=== PATIENT | female | born 1940 | race Caucasian/White ===

== ENCOUNTER 2023-02-06 11:02 | Emergency (ER) | payer MEDICARE, SELFPAY ==
[2023-02-06] VITALS (9 sets, daily range): BP systolic 100–187; BP diastolic 49–103; PULSE 79–102; RESP 18–22; TEMP 36.7–38.9; O2SAT 91–96; BMI 31.4
--- NOTE | 2023-02-06 11:44 | XRR_ITS ---
PROCEDURE INFORMATION: Exam: XR Chest Exam date and time: 02/06/2023 11:47 AM Age: 82 years old Clinical indication: Cough and dyspnea; Patient HX: Weakness and nausea; Additional info: Dyspnea/cough TECHNIQUE: Imaging protocol: Radiologic exam of the chest. Views: 1 view. COMPARISON: No relevant prior studies available. FINDINGS: Lungs: Unremarkable. No consolidation. Pleural spaces: Unremarkable. No pleural effusion. No pneumothorax. Heart/Mediastinum: Unremarkable. No cardiomegaly. Bones/joints: No acute findings. Other findings: A skin fold is seen projecting over the right hemithorax simulating a pneumothorax but lung markings are seen on either side of this suspected skin fold. XR/XR chest 1V portable [id number] IMPRESSION: 1. No acute findings. 2. A skin fold is seen projecting over the right hemithorax simulating a pneumothorax but lung markings are seen on either side of this suspected skin fold.
--- NOTE | 2023-02-06 11:59 | ECG_ITS ---
[facility] Test Date: 2023-02-06 Pat Name: Fanny Samayoa Department: Room: Gender: Female Head Of Art: : 1940 Requested By: Curtis Cooper Order Number: [id number] Samantha MD: Jose Miner M.D. Measurements Intervals [place] Rate: 81 P: 36 [place]: 175 QRS: 1 QRSD: 120 T: 30 QT: 374 QTc: 434 Interpretive Statements SINUS RHYTHM WITH OCCASIONAL SUPRAVENTRICULAR PREMATURE COMPLEXES POSSIBLE ANTERIOR MYOCARDIAL INFARCTION , OF INDETERMINATE AGE [30 ms Q WAVE IN V3/V4, OR R < 0.2 mV IN V4] No previous ECG available for comparison Electronically Signed On 02-06-2023 16:13:01 CDT by Jose Miner M.D. [id number]
[2023-02-06 12:14] LABS: Basophils % 0.6 %; Hematocrit 34.8 % (37.0-47.0); Hemoglobin 11.1 g/dL (11.5-15.3); Lymphocytes # 0.9 10^3/uL (0.8-4.8); Mean Corpuscular HGB Conc 31.9 g/dL (30.0-36.0); Mean Corpuscular Hemoglobin 28.9 pg (28.0-34.0); Mean Corpuscular Volume 90.6 fl (81-99); Mean Platelet Volume 11.9 fL (7.4-10.4); Monocytes # 0.1 10^3/uL (0.2-0.9); Monocytes % 3.1 %; Neutrophils # 2.41 10^3/uL (1.8-7.7); Neutrophils % 67.2 %; Nucleated Red Blood Cells % 0 %; Platelet Count 89 10^3/cmm (130-400); Red Blood Count 3.84 10^6/uL (4.1-5.3); Red Cell Distribution Width 13.9 % (12.1-15.1); White Blood Count 3.6 10^3/uL (4.0-10.0)
[2023-02-06 12:26] LABS: Slide Review Slide Review Perform
[2023-02-06 12:39] LABS: Alanine Aminotransferase 77 U/L (0-33); Alkaline Phosphatase 91 U/L (35-105); Anion Gap 17.9 (5-19); Aspartate Amino Transferase 147 U/L (0-32); Blood Urea Nitrogen 20 mg/dL (8-23); Calcium 8.8 mg/dL (8.5-10.5); Carbon Dioxide 24 mmol/L (22-29); Chloride 95 mmol/L (98-107); Globulin 2.1 g/dL (1.3-4.6); Glucose 119 mg/dL (65-115); Osmolality Calculated 282 mOsm/kg (285-295); Sodium 134 mmol/L (136-145); Total Bilirubin 0.6 mg/dL (0.15-1.2); Total Protein 6.1 g/dL (6.6-8.7)
[2023-02-06 12:40] LABS: Potassium 2.9 mmol/L (3.5-5.1)
--- NOTE | 2023-02-06 13:05 | W.ED.WEAKNES ---
Documented by User: Curtis Kunz DO 02/07/23 07:58 HPI - Weakness General: Chief complaint: Weakness Stated complaint: weakness Time Seen by Provider: 02/06/23 11:42 Source: patient Mode of arrival: ambulatory History of Present Illness: 82-year-old female visiting in the area from [place] staying [place] outdoor park for the last several days. She had a low-grade fever generalized malaise she has had some tick bites. She has also had some diarrhea aches myalgias and chills. She denies any hematochezia melena hematemesis or coffee-ground emesis no dysuria urgency or frequency no chest pain. No shortness of breath. No other specific complaints other than the generalized malaise. MD Complaint: generalized weakness Onset (ago): day(s) Duration: constant Location: generalized Relieving factors: none Exacerbating factors: none Associated symptoms: Denies chest pain, chills, confusion, melena, decreased appetite, diaphoresis, dysuria, easy bruising, fever(s), headache(s), myalgias, nausea, rash, short of breath, syncope or vomiting Review of Systems Const: Denies: fever(s), chills or diaphoresis Card: Denies: chest pain or syncope GI: Denies: nausea, vomiting or melena : Denies: dysuria Neuro: Denies: headache(s) or confusion Chuy/Lymph: Denies: easy bruising Physical Exam Const: GENERAL APPEARANCE: cooperative and comfortable ORIENTATION/CONSCIOUSNESS: Yes awake, Yes oriented to person, Yes oriented to place and Yes oriented to time HENMT: COMMON NORMALS: normocephalic, atraumatic and hearing grossly normal bilaterally HEAD & SCALP: normocephalic and atraumatic Resp: COMMON NORMALS: normal respiratory effort, No retractions, No use of accessory muscles and clear to auscultation bilaterally AUSCULTATION: clear to auscultation bilaterally Cardio: COMMON NORMALS: regular rate, regular rhythm and No murmurs present (Cardio) RATE: regular rate RHYTHM: regular rhythm GI: COMMON NORMALS: Soft to palpation and No hepatosplenomegaly present AUSCULTATION: Yes normoactive bowel sounds PALPATION: Yes Soft to palpation, No Tenderness to palpation present (GI), No Guarding due to palpation present (GI) and Yes No hepatosplenomegaly present Extremity: COMMON NORMALS: normal to inspection, capillary refill normal, no clubbing, cyanosis or edema, no calf tenderness and no pedal edema Neuro: SENSORIUM/ORIENTATION: Yes oriented to person, Yes oriented to place and Yes oriented to time Skin: COMMON NORMALS: no rashes or lesions noted GENERAL SKIN EXAM: no rashes or lesions noted Course Vital Signs: Vital signs: Vital Signs Temperature 98.1 F 02/06/23 18:45 Pulse Rate 92 02/06/23 18:45 Respiratory Rate 22 H 02/06/23 17:00 Blood Pressure 134/73 02/06/23 18:45 Pulse Oximetry 96 02/06/23 18:45 Oxygen Delivery Me thod Room Air 02/06/23 13:52 MDM - Weakness Medical Decision Making Patietn was about to be d/c'd w oral antibiotics for UTI. She spike d a fever and was noted to have slightly decreased oxygen sats and tachypnes. Given recent travel a CTA chest abdomen pelvis was ordered to evaluate for possible PE as well as pyelonephritis or abscess. We are waiting on the results of that at the time of transfer of care to the oncoming physician. She did receive a dose of Rocephin as well as some Tylenol cultures have been drawn. Care signed out to Dr. Adams at change of shift. See final notes for diagnosis and disposition. Patient presents here with generalized weakness along with fever she does have a UTI likely causing the symptoms did inform her CT she does have a lung mass that is concerning we will get her pulmonology follow-up she feels much improved would like to go home we will start her on antibiotics at home she is to follow-up as scheduled return if worsening. Lab Data 02/06/23 12:08 02/06/23 12:08 Radiology Impressions Chest X-Ray 02/06/23 11:44 IMPRESSION: 1. No acute findings. 2. A skin fold is seen projecting over the right hemithorax simulating a pneumothorax but lung markings are seen on either side of this suspected skin fold. Chest/Abdomen/Pelvis CT 02/06/23 16:49 IMPRESSION: 1. Negative for pulmonary embolus. 2. Left thyroid 13 mm nodule. 3. Coronary artery atherosclerotic calcifications. 4. Cardiomegaly. 5. Patchy bibasilar atelectasis. 6. Right upper lobe 3.2 cm focal airspace opacification. Highly suspicious IMPRESSION: 1. Prominent fluid in the small bowel without dilation may reflect an enteritis. 2. 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 3. Spleen enlarged to 16 cm. 4. Cholecystectomy. 5. Bilateral renal cysts, negative for follow-up advised. 6. Diverticulosis without diverticulitis. COMMENTS: Consistent with the [place] [employer]'s Incidental Findings Committee white paper (J Am Velasquez Radiol 2018): Any incidental renal lesion less than 1 cm or classified as too small to characterize, or any incidental cystic renal lesion characterized as simple-appearing, is likely benign. No follow-up imaging is recommended for these lesions per consensus recommendations based on imaging criteria. Laboratory Results WBC 3.6 10^3/uL (4.0-10.0) L 02/06/23 12:08 RBC 3.84 10^6/uL (4.1-5.3) L 02/06/23 12:08 Hgb 11.1 g/dL (11.5-15.3) L 02/06/23 12:08 Hct 34.8 % (37.0-47.0) L 02/06/23 12:08 MCV 90.6 fl (81-99) 02/06/23 12:08 MCH 28.9 pg (28.0-34.0) 02/06/23 12:08 MCHC 31.9 g/dL (30.0-36.0) 02/06/23 12:08 RDW 13.9 % (12.1-15.1) 02/06/23 12:08 Plt Count 89 10^3/cmm (130-400) L 02/06/23 12:08 MPV 11.9 fL (7.4-10.4) H 02/06/23 12:08 Neut % (Auto) 67.2 % 02/06/23 12:08 Lymph % (Auto) 26.0 % 02/06/23 12:08 [place] % (Auto) 3.1 % 02/06/23 12:08 Eos % (Auto) 0.0 % 02/06/23 12:08 Baso % (Auto) 0.6 % 02/06/23 12:08 Neut # (Auto) 2.41 10^3/uL (1.8-7.7) 02/06/23 12:08 Lymph # (Auto) 0.9 10^3/uL (0.8-4.8) 02/06/23 12:08 [place] # (Auto) 0.1 10^3/uL (0.2-0.9) L 02/06/23 12:08 Eos # (Auto) 0.0 10^3/uL (0.0-0.8) 02/06/23 12:08 Baso # (Auto) 0.0 10^3/uL (0.0-0.1) 02/06/23 12:08 Nucleated RBC % (auto) 0 % 02/06/23 12:08 Nucleated RBCs # 0.0 /100WBC 02/06/23 12:08 Sodium 134 mmol/L (136-145) L 02/06/23 12:08 Potassium 2.9 mmol/L (3.5-5.1) L 02/06/23 12:08 Chloride 95 mmol/L (98-107) L 02/06/23 12:08 Carbon Dioxide 24 mmol/L (22-29) 02/06/23 12:08 Anion Gap 17.9 (5-19) 02/06/23 12:08 BUN 20 mg/dL (8-23) 02/06/23 12:08 Creatinine 1.0 mg/dL (0.5-0.9) H 02/06/23 12:08 GFR Calculation Not Reportable 02/06/23 12:08 Glucose 119 mg/dL (65-115) H 02/06/23 12:08 Calculated Osmolality 282 mOsm/kg (285-295) L 02/06/23 12:08 Lactic Acid 1.5 mmol/L (0.5-2.2) 02/06/23 16:04 Calcium 8.8 mg/dL (8.5-10.5) 02/06/23 12:08 Total Bilirubin 0.6 mg/dL (0.15-1.2) 02/06/23 12:08 AST 147 U/L (0-32) H 02/06/23 12:08 ALT 77 U/L (0-33) H 02/06/23 12:08 Alkaline Phosphatase 91 U/L (35-105) 02/06/23 12:08 Total Protein 6.1 g/dL (6.6-8.7) L 02/06/23 12:08 Albumin 4.0 g/dL (3.5-5.2) 02/06/23 12:08 Globulin 2.1 g/dL (1.3-4.6) 02/06/23 12:08 Urine Color Yellow (Yellow) 02/06/23 14:56 Urine Appearance Hazy (CLEAR) A 02/06/23 14:56 Urine pH 5 (5-7) 02/06/23 14:56 Ur Specific [place] 1.015 (1.005-1.030) 02/06/23 14:56 Urine Protein 1+ (Negative) H 02/06/23 14:56 Urine Glucose (UA) Norm (Normal) 02/06/23 14:56 Urine Ketones 1+ (Negative) H 02/06/23 14:56 Urine Blood 2+ (Negative) H 02/06/23 14:56 Urine Nitrate Negative (Negative) 02/06/23 14:56 Urine Bilirubin 1+ (Negative) H 02/06/23 14:56 Urine Urobilinogen 4 mg/dL (Negative) H 02/06/23 14:56 Ur Leukocyte Esterase Trace (Negative) H 02/06/23 14:56 Urine RBC 5-10 /hpf (0-2) H 02/06/23 14:56 Urine WBC 5-10 /hpf (0-5) H 02/06/23 14:56 Ur Squamous Epith Cells 0-4 /hpf (0-5) H 02/06/23 14:56 Amorphous Sediment Not Reportable 02/06/23 14:56 Urine Bacteria 2+ /hpf (NONE) H 02/06/23 14:56 Hyaline Casts 5-10 /lpf H 02/06/23 14:56 Coarse Granular Casts 5-10 /lpf H 02/06/23 14:56 Discharge Plan Discharge Patient Disposition: Home Clinical Impression: Lung mass, Acute cystitis Condition: Stable Prescriptions: New cephalexin 500 mg capsule 500 mg PO TID 7 Days Qty: 21 0RF No Action losartan 50 mg tablet 50 mg PO DAILY diltiazem HCl 360 mg capsule,extended release 24 hr 360 mg PO DAILY Rx Instructions: AFTER BREAKFAST acetaminophen 500 mg Tablet 500 mg PO Q6H PRN (Reason: Pain) levothyroxine 50 mcg tablet 50 mcg PO DAILY omeprazole 20 mg capsule,delayed release(DR/EC) 20 mg PO DAILY Citracal 200 mg (950 mg) Tablet 200 mg PO DAILY escitalopram oxalate 20 mg tablet 20 mg PO DAILY Discharge Orders: Discharge ED (Routine); Ordered 02/06/23 Ordered By: Kanika Adams Referrals: Datar,Chavez Dave MD [Physician] - 1-3 days Discharge Diet: Advance as tolerated Discharge Activity: Resume usual activity Patient Instructions: Urinary Tract Infection in Women (ED) Coding Level of Care Code ED Patient Registration Manager for Chg Fwd Documented by User: Kanika Adams MD 02/06/23 18:41 HPI - Weakness General: Chief complaint: Weakness Stated complaint: weakness Time Seen by Provider: 02/06/23 11:42 Course Vital Signs: Vital signs: Vital Signs Temperature 98.1 F 02/06/23 18:45 Pulse Rate 92 02/06/23 18:45 Respiratory Rate 22 H 02/06/23 17:00 Blood Pressure 134/73 02/06/23 18:45 Pulse Oximetry 96 02/06/23 18:45 Oxygen Delivery Me thod Room Air 02/06/23 13:52 MDM - Weakness Medical Decision Making Patient presents here with generalized weakness along with fever she does have a UTI likely causing the symptoms did inform her CT she does have a lung mass that is concerning we will get her pulmonology follow-up she feels much improved would like to go home we will start her on antibiotics at home she is to follow-up as scheduled return if worsening. Medical Records I reviewed the patient's medical records. Lab Data I reviewed the patient's lab results. 02/06/23 12:08 02/06/23 12:08 Radiology Impressions Chest X-Ray 02/06/23 11:44 IMPRESSION: 1. No acute findings. 2. A skin fold is seen projecting over the right hemithorax simulating a pneumothorax but lung markings are seen on either side of this suspected skin fold. Chest/Abdomen/Pelvis CT 02/06/23 16:49 IMPRESSION: 1. Negative for pulmonary embolus. 2. Left thyroid 13 mm nodule. 3. Coronary artery atherosclerotic calcifications. 4. Cardiomegaly. 5. Patchy bibasilar atelectasis. 6. Right upper lobe 3.2 cm focal airspace opacification. Highly suspicious IMPRESSION: 1. Prominent fluid in the small bowel without dilation may reflect an enteritis. 2. 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 3. Spleen enlarged to 16 cm. 4. Cholecystectomy. 5. Bilateral renal cysts, negative for follow-up advised. 6. Diverticulosis without diverticulitis. COMMENTS: Consistent with the [place] [employer]'s Incidental Findings Committee white paper (J Am Velasquez Radiol 2018): Any incidental renal lesion less than 1 cm or classified as too small to characterize, or any incidental cystic renal lesion characterized as simple-appearing, is likely benign. No follow-up imaging is recommended for these lesions per consensus recommendations based on imaging criteria. Laboratory Results WBC 3.6 10^3/uL (4.0-10.0) L 02/06/23 12:08 RBC 3.84 10^6/uL (4.1-5.3) L 02/06/23 12:08 Hgb 11.1 g/dL (11.5-15.3) L 02/06/23 12:08 Hct 34.8 % (37.0-47.0) L 02/06/23 12:08 MCV 90.6 fl (81-99) 02/06/23 12:08 MCH 28.9 pg (28.0-34.0) 02/06/23 12:08 MCHC 31.9 g/dL (30.0-36.0) 02/06/23 12:08 RDW 13.9 % (12.1-15.1) 02/06/23 12:08 Plt Count 89 10^3/cmm (130-400) L 02/06/23 12:08 MPV 11.9 fL (7.4-10.4) H 02/06/23 12:08 Neut % (Auto) 67.2 % 02/06/23 12:08 Lymph % (Auto) 26.0 % 02/06/23 12:08 [place] % (Auto) 3.1 % 02/06/23 12:08 Eos % (Auto) 0.0 % 02/06/23 12:08 Baso % (Auto) 0.6 % 02/06/23 12:08 Neut # (Auto) 2.41 10^3/uL (1.8-7.7) 02/06/23 12:08 Lymph # (Auto) 0.9 10^3/uL (0.8-4.8) 02/06/23 12:08 [place] # (Auto) 0.1 10^3/uL (0.2-0.9) L 02/06/23 12:08 Eos # (Auto) 0.0 10^3/uL (0.0-0.8) 02/06/23 12:08 Baso # (Auto) 0.0 10^3/uL (0.0-0.1) 02/06/23 12:08 Nucleated RBC % (auto) 0 % 02/06/23 12:08 Nucleated RBCs # 0.0 /100WBC 02/06/23 12:08 Sodium 134 mmol/L (136-145) L 02/06/23 12:08 Potassium 2.9 mmol/L (3.5-5.1) L 02/06/23 12:08 Chloride 95 mmol/L (98-107) L 02/06/23 12:08 Carbon Dioxide 24 mmol/L (22-29) 02/06/23 12:08 Anion Gap 17.9 (5-19) 02/06/23 12:08 BUN 20 mg/dL (8-23) 02/06/23 12:08 Creatinine 1.0 mg/dL (0.5-0.9) H 02/06/23 12:08 GFR Calculation Not Reportable 02/06/23 12:08 Glucose 119 mg/dL (65-115) H 02/06/23 12:08 Calculated Osmolality 282 mOsm/kg (285-295) L 02/06/23 12:08 Lactic Acid 1.5 mmol/L (0.5-2.2) 02/06/23 16:04 Calcium 8.8 mg/dL (8.5-10.5) 02/06/23 12:08 Total Bilirubin 0.6 mg/dL (0.15-1.2) 02/06/23 12:08 AST 147 U/L (0-32) H 02/06/23 12:08 ALT 77 U/L (0-33) H 02/06/23 12:08 Alkaline Phosphatase 91 U/L (35-105) 02/06/23 12:08 Total Protein 6.1 g/dL (6.6-8.7) L 02/06/23 12:08 Albumin 4.0 g/dL (3.5-5.2) 02/06/23 12:08 Globulin 2.1 g/dL (1.3-4.6) 02/06/23 12:08 Urine Color Yellow (Yellow) 02/06/23 14:56 Urine Appearance Hazy (CLEAR) A 02/06/23 14:56 Urine pH 5 (5-7) 02/06/23 14:56 Ur Specific [place] 1.015 (1.005-1.030) 02/06/23 14:56 Urine Protein 1+ (Negative) H 02/06/23 14:56 Urine Glucose (UA) Norm (Normal) 02/06/23 14:56 Urine Ketones 1+ (Negative) H 02/06/23 14:56 Urine Blood 2+ (Negative) H 02/06/23 14:56 Urine Nitrate Negative (Negative) 02/06/23 14:56 Urine Bilirubin 1+ (Negative) H 02/06/23 14:56 Urine Urobilinogen 4 mg/dL (Negative) H 02/06/23 14:56 Ur Leukocyte Esterase Trace (Negative) H 02/06/23 14:56 Urine RBC 5-10 /hpf (0-2) H 02/06/23 14:56 Urine WBC 5-10 /hpf (0-5) H 02/06/23 14:56 Ur Squamous Epith Cells 0-4 /hpf (0-5) H 02/06/23 14:56 Amorphous Sediment Not Reportable 02/06/23 14:56 Urine Bacteria 2+ /hpf (NONE) H 02/06/23 14:56 Hyaline Casts 5-10 /lpf H 02/06/23 14:56 Coarse Granular Casts 5-10 /lpf H 02/06/23 14:56 Discharge Plan Discharge Patient Disposition: Home Clinical Impression: Lung mass, Acute cystitis Condition: Stable Prescriptions: New cephalexin 500 mg capsule 500 mg PO TID 7 Days Qty: 21 0RF No Action losartan 50 mg tablet 50 mg PO DAILY diltiazem HCl 360 mg capsule,extended release 24 hr 360 mg PO DAILY Rx Instructions: AFTER BREAKFAST acetaminophen 500 mg Tablet 500 mg PO Q6H PRN (Reason: Pain) levothyroxine 50 mcg tablet 50 mcg PO DAILY omeprazole 20 mg capsule,delayed release(DR/EC) 20 mg PO DAILY Citracal 200 mg (950 mg) Tablet 200 mg PO DAILY escitalopram oxalate 20 mg tablet 20 mg PO DAILY Discharge Orders: Discharge ED (Routine); Ordered 02/06/23 Ordered By: Kanika Adams Referrals: Datar,Chavez Dave MD [Physician] - 1-3 days Discharge Diet: Advance as tolerated Discharge Activity: Resume usual activity Patient Instructions: Urinary Tract Infection in Women (ED) Coding Level of Care Code ED Patient Registration Manager for Siddharth Tirado
[2023-02-06] MEDS: potassium chloride oral liq 20 mEq/15 mL UDC 40 MEQ PO (13:48)
--- NOTE | 2023-02-06 15:15 | PC.NURSE ---
PT PLACED ON CONTINUOUS NIBP ,SPO2, AND CM
[2023-02-06] MEDS: acetaminophen 500 mg Tablet 1000 MG PO (15:41)
[2023-02-06 15:48] LABS: Add Urine Microscopic? YES; Bilirubin Urine 1+ (Negative); Blood Urine 2+ (Negative); Glucose Urine UA Norm (Normal); Ketones Urine 1+ (Negative); Leukocyte Esterase Urine Trace (Negative); Nitrate Urine Negative (Negative); Protein Urine 1+ (Negative); Specific Gravity, Urine 1.015 (1.005-1.030); Urine Appearance Hazy (CLEAR); Urine Color Yellow (Yellow); pH Urine 5 (5-7)
[2023-02-06 15:49] LABS: Urobilinogen Urine 4 mg/dL (Negative)
[2023-02-06 15:51] LABS: Add Urine Culture? Yes; Bacteria Urine 2+ /hpf; Squamous Epithelial Cell Urine 0-4 /hpf (0-5)
[2023-02-06 16:48] LABS: Lactic Sepsis W/Reflex 1.5 mmol/L (0.5-2.2)
--- NOTE | 2023-02-06 16:49 | CTR_ITS ---
PROCEDURE INFORMATION: Exam: CTA Chest With Contrast Exam date and time: 02/06/2023 5:32 PM Age: 82 years old Clinical indication: Fever; Tachypnea; Additional info: Dyspena/tachypnea/fever/cystitis TECHNIQUE: Imaging protocol: Computed tomographic angiography of the chest with contrast. Exam focused on the arteries. 3D rendering (Not supervised by radiologist): MIP and/or 3D reconstructed images were created by the technologist. Radiation optimization: All CT scans at this facility use at least one of these dose optimization techniques: automated exposure control; mA and/or kV adjustment per patient size (includes targeted exams where dose is matched to clinical indication); or iterative reconstruction. Contrast material: OMNI 350; Contrast volume: 100 ml; Contrast route: INTRAVENOUS (IV); REPORTING DATA: Count of CT and Cardiac NM exams in prior 12 months: This patient has received 0 known CTs and 0 known cardiac nuclear medicine studies in the 12 months prior to the current study. COMPARISON: CR XR chest 1V portable [id number] 02/06/2023 11:47 AM RADIATION DOSE METRICS: Total DLP (mGy-cm): 1085.59 FINDINGS: Pulmonary arteries: Normal. No pulmonary emboli. Aorta: Unremarkable. No aortic aneurysm. No aortic dissection. Thyroid: Left thyroid 13 mm nodule. Lungs: Patchy bibasilar atelectasis. Right upper lobe 3.2 cm focal airspace opacification. Pleural spaces: Unremarkable. No pneumothorax. No pleural effusion. Heart: Cardiomegaly. Coronary arteries: Coronary artery atherosclerotic calcifications. Lymph nodes: Unremarkable. No enlarged lymph nodes. Bones/joints: Unremarkable. No acute fracture. Soft tissues: Unremarkable. nodule(s). Consider non-emergent PET/CT, or tissue sampling.(Reference: Akhil) COMMENTS: Consistent with the [place] [employer]'s Incidental Findings Committee white paper (J Am Velasquez Radiol 2015): In patients aged 35 years and older with an incidental thyroid nodule equal to or greater than 1.[address], MRI or extrathyroidal US, further evaluation with dedicated thyroid US is recommended for patients with normal life expectancy and without comorbidities. For smaller nodules without suspicious features, no further evaluation or follow up is recommended. REFERENCES: Akhil Coelho et al. Guidelines for Management of Incidental Pulmonary Nodules Detected on CT Images: From the Fleischner Society 2017. Radiology. 2017;284(1):228-243. PROCEDURE INFORMATION: Exam: CT Abdomen And Pelvis With Contrast Exam date and time: 02/06/2023 5:32 PM Age: 82 years old Clinical indication: Fever; Tachypnea; Additional info: Dyspena/tachypnea/fever/cystitis TECHNIQUE: Imaging protocol: Computed tomography of the abdomen and pelvis with contrast. Radiation optimization: All CT scans at this facility use at least one of these dose optimization techniques: automated exposure control; mA and/or kV adjustment per patient size (includes targeted exams where dose is matched to clinical indication); or iterative reconstruction. Contrast material: OMNI 350; Contrast volume: 100 ml; Contrast route: INTRAVENOUS (IV); REPORTING DATA: Count of CT and Cardiac NM exams in prior 12 months: This patient has received 0 known CTs and 0 known cardiac nuclear medicine studies in the 12 months prior to the current study. COMPARISON: CR XR chest 1V portable [id number] 02/06/2023 11:47 AM RADIATION DOSE METRICS: Total DLP (mGy-cm): 1085.59 FINDINGS: Liver: Normal. No mass. Gallbladder and bile ducts: Cholecystectomy. Pancreas: Normal. No ductal dilation. Spleen: Spleen enlarged to 16 cm. Adrenal glands: Normal. No mass. Kidneys and ureters: Bilateral renal cysts, negative for follow-up advised. Stomach and bowel: Prominent fluid in the small bowel without dilation may reflect an enteritis. Diverticulosis without diverticulitis. Appendix: No evidence of appendicitis. Intraperitoneal space: Unremarkable. No free air. No significant fluid collection. Vasculature: Unremarkable. No abdominal aortic aneurysm. Lymph nodes: Unremarkable. No enlarged lymph nodes. Urinary bladder: Unremarkable as visualized. 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 Bones/joints: Unremarkable. No acute fracture. Soft tissues: Unremarkable. CT/CT angio chest w abd pel w con IMPRESSION: 1. Negative for pulmonary embolus. 2. Left thyroid 13 mm nodule. 3. Coronary artery atherosclerotic calcifications. 4. Cardiomegaly. 5. Patchy bibasilar atelectasis. 6. Right upper lobe 3.2 cm focal airspace opacification. Highly suspicious IMPRESSION: 1. Prominent fluid in the small bowel without dilation may reflect an enteritis. 2. 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 3. Spleen enlarged to 16 cm. 4. Cholecystectomy. 5. Bilateral renal cysts, negative for follow-up advised. 6. Diverticulosis without diverticulitis. COMMENTS: Consistent with the [place] [employer]'s Incidental Findings Committee white paper (J Am Velasquez Radiol 2018): Any incidental renal lesion less than 1 cm or classified as too small to characterize, or any incidental cystic renal lesion characterized as simple-appearing, is likely benign. No follow-up imaging is recommended for these lesions per consensus recommendations based on imaging criteria.
[2023-02-06] MEDS: cefTRIAXone 1,000 MG in sodium chloride 0.9% (plus) 50 ML 100 MG IV (16:53)
[2023-02-06] MEDS: iohexol 350 mg/mL 500 mL Btl (per mL) IV (17:43)
--- NOTE | 2023-02-07 07:58 | DCPLANNER ---
Addendum entered by Laura Glass 02/15/23 09:37: truck sales manager received the following message from the pulmonology clinic regarding follow up appointment: Spoke with patient, patient stated she does not want to be seen at this time. Thank you. Original Note: truck sales manager had message to schedule a follow up appointment for patient with pulmonology. truck sales manager [facility] information will be printed and reviewed. Clinic will call patient with appointment information.
--- NOTE | 2023-02-07 10:49 | DCPLANNER ---
retail account manager was triggered to call patient due to no primary care physician - patient does not live in the area.
[2023-02-07 14:24] LABS: Lyme AB Screen <0.90 index
[2023-02-09 16:44] LABS: E. Chaffeensis AB IGG <1:64; E. Chaffeensis AB IGM <1:20
[2023-02-09 16:53] LABS: RMSF IGG NOT DETECTED; RMSF IGM NOT DETECTED
== END 2023-02-06 18:37 | disposition home or self-care (01) ==
PROVIDERS: Family Medicine; Emergency Provider Emergency Medicine
DX: N30.00 Acute cystitis without hematuria (principal); R91.8 Other nonspecific abnormal finding of lung field
CPT/HCPCS: 36415; 71045; 71275; 74177; 80053; 81001; 83605; 85025; 86618; 86666; 86757; 87040; 87077; 87086; 87186; 93005; 96374; 99285; J0696; Q9967